=== PATIENT | female | born 1960 | race Caucasian/White ===

== ENCOUNTER 2020-04-25 16:19 | Outpatient (CLI) | payer MEDICARE, OTHER, SELFPAY ==
--- NOTE | ~2020-04-25 | US_ITS ---
EXAMINATION: US venous doppler [facility] DATE: 04/25/2020 17:03 INDICATION: Left lower limb pain. Recent knee surgery. TECHNIQUE: Grayscale ultrasound images without and with compression and Doppler ultrasound images of the left lower extremity veins were obtained. COMPARISON: None. FINDINGS: The visualized portions of left common femoral vein, profunda (deep) femoral vein, femoral vein, popl iteal vein, peroneal veins, posterior tibial veins, gastrocnemius vein and greater saphenous vein out flow are patent. There is mild subcutaneous edema but no abnormal masses or fluid collections identif ied at the region of concern at the left calf. IMPRESSION: 1. No deep venous thrombosis in the left lower limb. Reviewed, dictated and finalized at location A. NG OFFICER
== END 2020-04-25 16:20 | disposition home or self-care (01) ==
PROVIDERS: PCP Physician Assistant; Visit Provider Physician Assistant
DX: M79.662 Pain in left lower leg (principal)
CPT/HCPCS: 93971

== ENCOUNTER 2023-08-16 17:32 | Emergency (ER) | payer MEDICARE, OTHER, SELFPAY ==
--- NOTE | ~2023-08-16 | XR_ITS ---
EXAM: XR hand LT min 3V DATE: 08/16/2023 17:53 HISTORY: closed fingers in [facility] today . COMPARISON: 11/09/2015. FINDINGS: Normal mineralization. No fracture or dislocation. Ulnar styloid fracture. No lytic or cristal stic lesion. Polyarticular osteoarthritis. No erosion or periosteal change. Soft tissues within mary jane l limits. IMPRESSION: No acute osseous finding in the left hand. Reviewed, dictated and finalized at location K.
[2023-08-16 17:33] VITALS: BP 143/88; PULSE 72; RESP 20; TEMP 36.1; O2SAT 99
[2023-08-16] MEDS: HYDROcodone/acetaminophen (*CRX) 5-325 MG TABLET 1 TAB PO (18:39)
--- NOTE | 2023-08-16 18:51 | ED.GENADULT ---
HPI - General Adult General Chief complaint: Extremity Injury, Upper Stated complaint: crushing injury to left hand Time Seen by Provider: 08/16/23 17:41 History of Present Illness HPI narrative: 63-year-old female presenting to the emergency department for evaluation for an injury to her left hand. Patient injured her left hand and tailgate and did have a skin tear to the palmar of the 3rd finger Related Data Home Medications Medication Instructions Recorded Confirmed cholecalciferol (vitamin D3) 25 500 unit PO DAILY 02/02/19 10/06/19 mcg (1,000 unit) capsule (Vitamin D3) folic acid 800 mcg tablet 0.8 mg PO DAILY 02/02/19 10/06/19 hydroxychloroquine 200 mg tablet 200 mg PO BID 02/02/19 10/06/19 (Plaquenil) infliximab 100 mg intravenous 500 mg IV 02/02/19 10/06/19 solution (Remicade) naproxen sodium 220 mg capsule 220 mg PO DAILY 02/02/19 10/06/19 (Aleve) methotrexate sodium (PF) 1 gram 10 mg subcut WEEKLY 10/06/19 10/06/19 solution for injection Allergies Allergy/AdvReac Type Severity Reaction Status Date / Time Penicillins Allergy Unknown Rash Verified 08/16/23 17:40 Sulfa (Sulfonamide Allergy Unknown Rash Verified 08/16/23 17:40 Antibiotics) codeine AdvReac Severe NAUSEA Verified 08/16/23 17:40 hydrocodone AdvReac Severe N/V Verified 08/16/23 17:40 vancomycin AdvReac Redness of Verified 08/16/23 17:40 Skin Review of Systems Review of Systems: All systems reviewed & are unremarkable except as noted in HPI and below PMFSH Past Medical History Medical History (Updated 08/17/23 @ 00:00 by Background Daemon) Diastolic dysfunction Generalized hyperhidrosis Hypothyroidism MAURO (obstructive sleep apnea) Rheumatoid arthritis Tobacco abuse Surgical History Surgical History History of appendectomy History of cholecystectomy Family History Family History Mother Hypertension Cerebrovascular accident Family history of heart disease in male family member before age 55 Father Hypertension Family history of heart disease in male family member before age 55 Sibling Hypertension Family history of heart disease in male family member before age 55 Social History Social History Social History: 0.5 PPD x 20 years Smoking status: Current every day smoker Alcohol intake: current Exam Narrative: APPEARANCE: Well appearing, no pain, no distress, well-nourished. HEAD: normocephalic, atraumatic. EYES: PERRLA/EOMI, conjunctivae clear. NOSE: Normal no drainage EARS:TMS clear with good light reflex. THROAT: Pharynx clear, no exudate. NECK: Supple. No adenopathy, no masses. RESPIRATORY: Airway patent, respirations nonlabored. Clear to auscultation bilaterally, no rales, rhonchi, wheezing. CARDIOVASCULAR: Regular rate and rhythm without murmurs rubs or gallops. ABDOMINAL: Soft, nontender, nondistended, normal bowel sounds MUSCULOSKELETAL: Moves all extremities. Strength/ROM intact, No edema, No calf tenderness. NEURO: Alert. Cranial nerves II through XII intact. Grossly intact SKIN: Warm, dry. Normal Color Course Vital Signs Vital signs: Vital Signs Temperature 96.9 F L 08/16/23 17:33 Pulse Rate 72 08/16/23 17:33 Respiratory Rate 20 08/16/23 17:33 Blood Pressure 143/88 H 08/16/23 17:33 Pulse Oximetry 99 08/16/23 17:33 Oxygen Delivery Room Air 08/16/23 17:33 Temperature 96.9 F L 08/16/23 17:33 Pulse Rate 72 08/16/23 17:33 Respiratory Rate 20 08/16/23 17:33 Blood Pressure 143/88 H 08/16/23 17:33 Pulse Oximetry 99 08/16/23 17:33 Oxygen Delivery Room Air 08/16/23 17:33 Medical Decision Making MDM Narrative Medical decision making narrative: 63-year-old female presenting to the emergency department for evaluation of injury to her left hand. X-rays were n
[2023-08-16] MEDS: TETANUS,DIPHTHERIA,AC PERTUSSIS ADULT (0.5 ML) BOOSTRIX (18:55)
== END 2023-08-16 19:06 | disposition home or self-care (01) ==
PROVIDERS: Emergency Provider Emergency Medicine; PCP Physician Assistant
DX: S61.213A Laceration without foreign body of left middle finger without damage to nail, initial encounter (principal); I51.89 Other ill-defined heart diseases; E03.9 Hypothyroidism, unspecified; G47.33 Obstructive sleep apnea (adult) (pediatric); M06.9 Rheumatoid arthritis, unspecified; F17.210 Nicotine dependence, cigarettes, uncomplicated; Z90.49 Acquired absence of other specified parts of digestive tract; Z79.899 Other long term (current) drug therapy; W23.0XXA Caught, crushed, jammed, or pinched between moving objects, initial encounter
CPT/HCPCS: 73130; 90471; 90715; 99283; A9270